=== PATIENT | male | born 1980 | race Caucasian/White ===

== ENCOUNTER 2017-02-10 20:43 | Emergency (ER) | payer OTHER ==
--- NOTE | 2017-02-10 21:36 | EDM.PDOC ---
ED HPI GENERAL MEDICAL PROBLEM - General Chief Complaint: Lower Extremity Injury/Pain Stated Complaint: PAIN LT ANKLE Time Seen by Provider: 02/10/17 21:10 Source of Information: Reports: Patient History Limitations: Reports: No Limitations - History of Present Illness INITIAL COMMENTS - FREE TEXT/NARRATIVE: History of present illness: [36-year-old male comes in with acute onset left foot pain. Patient indicates that he had been standing for a protracted period of time on his foot and subsequently has had pain since. He is attempted home massage which helped some but the meninges or walking on again it started hurting him again] Review of systems: As per history of present illness and below otherwise all systems reviewed and negative. Past medical history: As per history of present illness and as reviewed below otherwise noncontributory. Surgical history: As per history of present illness and as reviewed below otherwise noncontributory. Social history: No reported history of drug or alcohol abuse. Family history: As per history of present illness and as reviewed below otherwise noncontributory. Physical exam: HEENT: Atraumatic, normocephalic, pupils reactive, negative for conjunctival pallor or scleral icterus, mucous membranes moist, throat clear, neck supple, nontender, trachea midline. Lungs: Clear to auscultation, breath sounds equal bilaterally, chest nontender. Heart: S1S2, regular, negative for clicks, rubs, or JVD. Abdomen: Soft, nondistended, nontender. Negative for masses or hepatosplenomegaly. Negative for costovertebral tenderness. Pelvis: Stable nontender. Genitourinary: Deferred. Rectal: Deferred. Extremities: Atraumatic, negative for cords or calf pain. Neurovascular unremarkable. Obvious flat foot with no significant presence of arch. Also diminished instep. Neuro: Awake, alert, oriented. Cranial nerves II through XII unremarkable. Cerebellum unremarkable. Motor and sensory unremarkable throughout. Exam nonfocal. Diagnostics: [X-ray of left foot] Therapeutics: [] Impression: [Foot pain] Plan: [Meloxicam/follow-up with podiatry] Definitive disposition and diagnosis as appropriate pending reevaluation and review of above. Left Feet Pain Score (Numeric/FACES): 2 - Related Data Allergies Allergy/AdvReac Type Severity Reaction Status Date / Time prednisone Allergy Hallucinati Verified 02/10/17 20:47 ons Home Meds: Home Meds Sertraline [Zoloft] 100 mg PO DAILY 09/07/15 [History] Meloxicam 7.5 mg PO BID #30 tablet 02/10/17 [Rx] Past Medical History HEENT History: Reports: None Cardiovascular History: Reports: None Respiratory History: Reports: None Gastrointestinal History: Reports: None Genitourinary History: Reports: None Musculoskeletal History: Reports: None Neurological History: Reports: None Psychiatric History: Reports: Depression Endocrine/Metabolic History: Reports: None Hematologic History: Reports: None Immunologic History: Reports: None Oncologic (Cancer) History: Reports: None Dermatologic History: Reports: None - Infectious Disease History Infectious Disease History: Reports: None - Past Surgical History Head Surgeries/Procedures: Reports: None HEENT Surgical History: Reports: Tonsillectomy Social & Family History - Family History Family Medical History: Noncontributory - Tobacco Use Smoking Status *Q: Never Smoker Second Hand Smoke Exposure: No - Recreational Drug Use Recreational Drug Use: No Review of Systems - Review of Systems Review Of Systems: See Below (History of present illness) ED EXAM, GENERAL - Physical Exam Exam: See Below (History of present illness) Course - Vital Signs Last Recorded V/S: Last Vital Signs Temp 37.2 C 02/10/17 20:51 Pulse 68 02/10/17 20:51 Resp 16 02/10/17 20:51 BP 135/86 02/10/17 20:51 Pulse Ox 99 02/10/17 20:51 - Orders/Labs/Meds Orders: Active Orders 24 hr Category Date Time Status Foot 2V Lt [CR] Stat Exams 02/10/17 21:09 Ordered Departure - Departure Time of Disposition: 21:37 Disposition: Home, Self-Care 01 Condition: Good Clinical Impression: Foot pain, left - Discharge Information Forms: ED Department Discharge Additional Instructions: The following information is given to patients seen in the emergency department who are being discharged to home. This information is to outline your options for follow-up care. We provide all patients seen in our emergency department with a follow-up referral. The need for follow-up, as well as the timing and circumstances, are variable depending upon the specifics of your emergency department visit. If you don't have a primary care physician on staff, we will provide you with a referral. We always advise you to contact your personal physician following an emergency department visit to inform them of the circumstance of the visit and for follow-up with them and/or the need for any referrals to a consulting specialist. The emergency department will also refer you to a specialist when appropriate. This referral assures that you have the opportunity for follow-up care with a specialist. All of these measure are taken in an effort to provide you with optimal care, which includes your follow-up. Under all circumstances we always encourage you to contact your private physician who remains a resource for coordinating your care. When calling for follow-up care, please make the office aware that this follow-up is from your recent emergency room visit. If for any reason you are refused follow-up, please contact the [facility] Emergency Department at and asked to speak to the emergency department charge nurse. - My Orders Last 24 Hours: My Active Orders 02/10/17 21:09 Foot 2V Lt [CR] Stat - Assessment/Plan Last 24 Hours: My Active Orders 02/10/17 21:09 Foot 2V Lt [CR] Stat
[2017-02-10 22:26] VITALS: BP 121/79
--- NOTE | 2017-02-11 13:20 | CR ---
EXAM DATE: 02/10/17 PATIENT'S AGE: 36 Patient: ZULMA RABAGO Facility: [place], [place] Site . Site : 1980 Study: XRay Extremity foot [id number]/12/2017 9:27:19 PM Ordering Physician: Doctor Dawson Final Report: Indication: Pain after standing 8+ hours 3 days ago. Technique: Left foot two views. Comparison: None. Findings: No acute fracture or dislocation. No additional osseous abnormality. Incidental accessory navicular. Soft tissues as imaged are unremarkable. Impression: No acute osseous abnormality. Dictated by Jairo Esposito MD @ 02/10/2017 9:35:54 PM Dictated by: Jairo Esposito MD @ 02/10/2017 21:36:00 (Electronic Signature) Report Signed by Proxy. [facility]ITAL[facility]il[facility]
== END 2017-02-10 22:13 | disposition home or self-care (01) ==
LOC: MW.ED 20:43
DX: M79.672 Pain in left foot (principal); F41.9 Anxiety disorder, unspecified; Z88.8 Allergy status to other drugs, medicaments and biological substances; Z79.899 Other long term (current) drug therapy; Z98.890 Other specified postprocedural states
CPT/HCPCS: 73620-26-LT; 73620-LT; 99282; 99283

== ENCOUNTER 2019-08-19 18:33 | Emergency (ER) | payer BC ==
--- NOTE | 2019-08-19 19:09 | EDM.PDOC ---
ED HPI GENERAL MEDICAL PROBLEM - General Chief Complaint: Back Pain or Injury Stated Complaint: BACK PAIN Time Seen by Provider: 08/19/19 18:59 Source of Information: Reports: Patient History Limitations: Reports: No Limitations - History of Present Illness INITIAL COMMENTS - FREE TEXT/NARRATIVE: Patient reports 1 hour history of lower back pain. 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 Denies any history of prior back problems. Denies incontinence of urine or stool. Denies any weakness, numbness, tingling. No fever or chills. No history of IV drug abuse or immunocompromise. Denies any rash. No abdominal pain or syncope. Pain worse with movement, improved with standing up. Pain is currently 2 out of 10 while standing, and a maximum of 10 out of 10 with movement and sitting. lower back Pain Score (Numeric/FACES): 2 - Related Data Allergies Allergy/AdvReac Type Severity Reaction Status Date / Time prednisone Allergy Hallucinati Verified 08/19/19 18:44 ons Home Meds: Home Meds Sertraline [Zoloft] 100 mg PO DAILY 09/07/15 [History] Cyclobenzaprine [Flexeril] 10 mg PO BID #20 tab 08/19/19 [Rx] Ibuprofen [Motrin] 600 mg PO Q6H PRN #20 tab 08/19/19 [Rx] oxyCODONE HCl/Acetaminophen [Percocet 5-325 mg Tablet] 1 each PO Q6HR PRN #10 tablet 08/19/19 [Rx] Past Medical History HEENT History: Reports: None Cardiovascular History: Reports: None Respiratory History: Reports: None Gastrointestinal History: Reports: None Genitourinary History: Reports: None Musculoskeletal History: Reports: None Neurological History: Reports: None Psychiatric History: Reports: Depression Endocrine/Metabolic History: Reports: None Hematologic History: Reports: None Immunologic History: Reports: None Oncologic (Cancer) History: Reports: None Dermatologic History: Reports: None - Infectious Disease History Infectious Disease History: Reports: Chicken Pox - Past Surgical History Head Surgeries/Procedures: Reports: None HEENT Surgical History: Reports: Tonsillectomy Social & Family History - Family History Family Medical History: Noncontributory - Tobacco Use Smoking Status *Q: Never Smoker - Recreational Drug Use Recreational Drug Use: No ED ROS GENERAL - Review of Systems Review Of Systems: See Below Constitutional: Reports: No Symptoms HEENT: Reports: No Symptoms Respiratory: Reports: No Symptoms Cardiovascular: Reports: No Symptoms Endocrine: Reports: No Symptoms GI/Abdominal: Reports: No Symptoms : Reports: No Symptoms Musculoskeletal: Reports: Back Pain. Denies: Neck Pain, Leg Pain Skin: Reports: No Symptoms Neurological: Reports: No Symptoms. Denies: Numbness, Paresthesia, Tingling ED EXAM,LOWER BACK PAIN/INJURY - Physical Exam Exam: See Below Exam Limited By: No Limitations General Appearance: Alert, Moderate Distress Nose: No Blood Throat/Mouth: No Airway Compromise Head: Atraumatic, Normocephalic Neck: Normal Inspection Respiratory/Chest: No Respiratory Distress, Lungs Clear, Normal Breath Sounds, No Accessory Muscle Use Cardiovascular: Normal Peripheral Pulses, Regular Rate, Rhythm GI/Abdominal: Normal Bowel Sounds, Soft, Non-Tender, No Distention Back Exam: Decreased Range of Motion, Other (lumbar paravertebral and midline tenderness. no step off or deformity. ROM limited secondary to pain. ) Neurological: Alert, Normal Mood/Affect, Normal Reflexes, No Motor/Sensory Deficits, Oriented x 3, Other (mildly antalgic gait) DTR - Lower Extremities: 2+: Knee (R), Knee (L) Skin Exam: Warm, Dry, Intact, Normal Color, No Rash Course - Vital Signs Text/Narrative:: Patient improved during ED course. NVI without red flags at this time. To follow up with pcp in 1-2 days. No indication for emergent MRI at this time. If pain does not resolve, he may require outpatient MRI. Given discharge precautions, expressed verbal understanding. Ambulatory at time of discharge, will be driving him home. Last Recorded V/S: Last Vital Signs Temp 97.4 F 08/19/19 18:44 Pulse 75 08/19/19 20:05 Resp 16 08/19/19 20:05 BP 135/88 08/19/19 20:05 Pulse Ox 95 08/19/19 20:05 - Orders/Labs/Meds Meds: Medications Discontinued Medications Generic Name Dose Route Start Last Admin Trade Name Freq PRN Reason Stop Dose Admin Cyclobenzaprine HCl 10 mg 08/19/19 19:11 08/19/19 19:44 Flexeril PO 08/19/19 19:12 Not Given DAILY STA Cyclobenzaprine HCl Confirm 08/19/19 19:36 08/19/19 19:44 Flexeril Administered 08/19/19 19:37 Not Given Dose 10 mg .ROUTE .STK-MED ONE Cyclobenzaprine HCl 10 mg 08/19/19 19:43 08/19/19 19:44 Flexeril PO 08/19/19 19:44 10 mg ONETIME ONE Administration Hydromorphone HCl 1 mg 08/19/19 19:10 08/19/19 19:40 Dilaudid IM 08/19/19 19:11 1 mg ONETIME ONE Administration Ketorolac Tromethamine 30 mg 08/19/19 19:10 08/19/19 19:40 Toradol IM 08/19/19 19:11 30 mg ONETIME ONE Administration Departure - Departure Time of Disposition: 20:05 Disposition: Home, Self-Care 01 Condition: Good Clinical Impression: Back pain - Discharge Information *PRESCRIPTION DRUG MONITORING PROGRAM REVIEWED*: Not Applicable *COPY OF PRESCRIPTION DRUG MONITORING REPORT IN PATIENT PHYLLIS: Not Applicable Prescriptions: oxyCODONE HCl/Acetaminophen [Percocet 5-325 mg Tablet] 1 each PO Q6HR PRN #10 tablet PRN Reason: moderate to severe back pain Cyclobenzaprine [Flexeril] 10 mg PO BID #20 tab Ibuprofen [Motrin] 600 mg PO Q6H PRN #20 tab PRN Reason: Pain Instructions: Acute Back Pain, Adult, Back Injury Prevention, [id number], Back Exercises, [id number], Musculoskeletal Pain Referrals: PCP,None [Primary Care Provider] - 2 Days Forms: ED Department Discharge Additional Instructions: The following information is given to patients seen in the emergency department who are being discharged to home. This information is to outline your options for follow-up care. We provide all patients seen in our emergency department with a follow-up referral. The need for follow-up, as well as the timing and circumstances, are variable depending upon the specifics of your emergency department visit. If you don't have a primary care physician on staff, we will provide you with a referral. We always advise you to contact your personal physician following an emergency department visit to inform them of the circumstance of the visit and for follow-up with them and/or the need for any referrals to a consulting specialist. The emergency department will also refer you to a specialist when appropriate. This referral assures that you have the opportunity for follow-up care with a specialist. All of these measure are taken in an effort to provide you with optimal care, which includes your follow-up. Under all circumstances we always encourage you to contact your private physician who remains a resource for coordinating your care. When calling for follow-up care, please make the office aware that this follow-up is from your recent emergency room visit. If for any reason you are refused follow-up, please contact the [facility] Emergency Department at and asked to speak to the emergency department charge nurse. Care Plan Goals: The following information is given to patients seen in the emergency department who are being discharged to home. This information is to outline your options for follow-up care. We provide all patients seen in our emergency department with a follow-up referral. The need for follow-up, as well as the timing and circumstances, are variable depending upon the specifics of your emergency department visit. If you don't have a primary care physician on staff, we will provide you with a referral. We always advise you to contact your personal physician following an emergency department visit to inform them of the circumstance of the visit and for follow-up with them and/or the need for any referrals to a consulting specialist. The emergency department will also refer you to a specialist when appropriate. This referral assures that you have the opportunity for follow-up care with a specialist. All of these measure are taken in an effort to provide you with optimal care, which includes your follow-up. Under all circumstances we always encourage you to contact your private physician who remains a resource for coordinating your care. When calling for follow-up care, please make the office aware that this follow-up is from your recent emergency room visit. If for any reason you are refused follow-up, please contact the [facility] Emergency Department at and asked to speak to the emergency department charge nurse. [facility] [address] [place] [id number] [address] Sepsis Event Note - Evaluation Sepsis Screening Result: No Definite Risk - Focused Exam Vital Signs: Vital Signs Temp Pulse Resp BP Pulse Ox 08/19/19 20:05 75 16 135/88 95 08/19/19 18:44 97.4 F 81 18 147/88 H 96 Date Exam was Performed: 08/20/19 Time Exam was Performed: 03:51
[2019-08-19] MEDS ORDERED: Ketorolac 30 MG/ML SDV IM ONE (19:10)
[2019-08-19] MEDS ORDERED: HYDROmorphone 1 MG/ML Syringe IM ONE (19:10)
[2019-08-19] MEDS ORDERED: Cyclobenzaprine 5 MG Tab PO STA (19:11)
[2019-08-19] MEDS ORDERED: Cyclobenzaprine 10 MG Tab ONE (19:36)
[2019-08-19] MEDS ORDERED: Cyclobenzaprine 10 MG Tab PO ONE (19:43)
[2019-08-19 20:06] VITALS: BP 135/88; PULSE 75
== END 2019-08-19 20:06 | disposition home or self-care (01) ==
LOC: MW.ED 18:33
DX: M54.5 Low back pain (principal); Z88.8 Allergy status to other drugs, medicaments and biological substances; Z79.899 Other long term (current) drug therapy
CPT/HCPCS: 96372; 99283; A9270; J1170; J1885